=== PATIENT | female | born 1970 | race Caucasian/White ===

== ENCOUNTER 2023-11-06 08:56 | Inpatient (IN) | payer SELFPAY ==
[~2023-11-06] VITALS: Ht 157.5 cm; Wt 67.9 kg
[2023-11-06] VITALS (44 sets, daily range): BP systolic 121–174; BP diastolic 61–109; TEMP 98.3–98.5; O2SAT 95–98
[2023-11-06] MEDS ORDERED: ISOVUE-370 76% 100ML VIAL As Ordered ONE (09:42)
[2023-11-06 10:39] LABS: BASO # 0.1 10^3/uL (0.0-0.2); BASO % 0.8 % (0.0-1.0); EOS % 0.4 % (0.0-3.0); HEMATOCRIT 49.1 % (36.0-47.0); HEMOGLOBIN 16.7 g/dl (12.0-15.5); LYMPH # 1.7 10^3/uL (1.5-5.0); LYMPH % 14.5 % (24.0-44.0); MEAN CORPUSCULAR HEMOGLOBIN 30.9 pg (27.0-33.0); MEAN CORPUSCULAR VOLUME 90.8 fl (80.0-96.0); MONO # 0.4 10^3/uL (0.0-0.8); MONO % 3.7 % (2.0-8.0); NEUTROPHILS # 9.2 10^3/uL (1.5-8.5); NEUTROPHILS % 80.2 % (36.0-66.0); PLATELET COUNT, AUTOMATED 304 10^3/uL (150-450); RED BLOOD COUNT 5.41 10^6/uL (4.00-5.40); WHITE BLOOD COUNT 11.4 10^3/uL (4.0-10.0)
[2023-11-06 10:50] LABS: INR 1.03; PARTIAL THROMBOPLASTIN TIME 32.7 SECONDS (24.8-34.2); PROTHROMBIN TIME 13.2 SECONDS (12.5-14.5)
[2023-11-06] MEDS: LABETALOL 100MG/20ML VIAL IV PRN (10:56)
[2023-11-06 11:11] LABS: CK-MB VALUE MASS 1.9 NG/ML (<3.6)
[2023-11-06 11:12] LABS: MB/CK RELATIVE INDEX 1.9 (< OR =4)
[2023-11-06] MEDS ORDERED: HOME MED LIST COMPLETE! XX SCH (12:45)
[2023-11-06 13:00] LABS: ALBUMIN 4.3 G/DL (3.2-5.2); BILIRUBIN,DIRECT 0.1 MG/DL (<0.4); BILIRUBIN,TOTAL 0.4 MG/DL (0.3-1.2); CHOLESTEROL RISK RATIO 5.17 (<5); HDL CHOLESTEROL 49.1 MG/DL (>40); LDL CHOLESTEROL 171.1 MG/DL (<100); NON-HDL-C 204.9 MG/DL
[2023-11-06] MEDS: niCARdipine IV 40 MG in IV 1 EA IV SCH ×2 (13:01→22:00)
[2023-11-06] MEDS: PANTOPRAZOLE 40MG TAB (PROTONIX) PO SCH (13:51)
[2023-11-06] MEDS: ENOXAPARIN 40MG/0.4ML SYRINGE (J1650 PER 10MG) SC SCH (13:52)
[2023-11-06] MEDS: ASPIRIN 81MG CHEW TABLET PO SCH (13:52)
[2023-11-06] MEDS: CLOPIDOGREL 75 MG TAB PO SCH (13:52)
[2023-11-06] MEDS: ATORVASTATIN 20 MG TAB PO SCH (14:21)
[2023-11-06] MEDS: SODIUM CHLORIDE NASAL 0.65% SPRAY BTL (OCEAN) SCH (21:00)
[2023-11-07] VITALS (41 sets, daily range): BP systolic 90–208; BP diastolic 56–129; TEMP 97.6–98.9; O2SAT 94–98
[2023-11-07 05:41] LABS: ALBUMIN 4.2 G/DL (3.2-5.2); ALKALINE PHOSPHATASE 80 U/L (46-116); ALT/SGPT 13 U/L (7.0-40); AST/SGOT 15 U/L (<34); BILIRUBIN,TOTAL 0.6 MG/DL (0.3-1.2); BLOOD UREA NITROGEN 17 MG/DL (9-23); CALCIUM LEVEL 9.2 MG/DL (8.5-10.1); CARBON DIOXIDE LEVEL 27 MMOL/L (20-31); CHLORIDE LEVEL 108 MMOL/L (98-107); CREATININE FOR GFR 0.87 MG/DL (0.55-1.30); GLOMERULAR FILTRATION RATE > 60.0 (>51); GLUCOSE, FASTING 97 MG/DL (60-100); SODIUM LEVEL 145 MMOL/L (136-145); TOTAL PROTEIN 6.7 G/DL (5.7-8.2)
[2023-11-07] MEDS: POTASSIUM CHLORIDE 10% LIQ 20MEQ/15ML UDC PO ONE (06:24)
[2023-11-07] MEDS: hydrALAZINE 20MG/ML 1ML VIAL IV PRN (06:24)
[2023-11-07] MEDS: KCL 10MEQ/100ML SWI (KRUN) 10 MEQ in IV 1 EA IV SCH (06:24)
[2023-11-07] MEDS: CARVedilol 6.25 MG TAB PO SCH (08:15)
[2023-11-07] MEDS: hydrALAZINE 20MG/ML 1ML VIAL IV STA (08:34)
[2023-11-07] MEDS: POTASSIUM CHLORIDE 10MEQ SR TABLET PO ONE (13:17)
[2023-11-07] MEDS: cloNIDine 0.1MG TABLET PO SCH (13:47)
[2023-11-07] MEDS: ALPRAZolam 0.25 MG TAB PO ONE (13:48)
[2023-11-07] MEDS ORDERED: niCARdipine IV 40 MG in IV 1 EA IV SCH (14:00)
[2023-11-07] MEDS ORDERED: **hydrALAZINE** 50 MG TAB PO SCH (18:00)
[2023-11-07] MEDS ORDERED: CARVedilol 12.5 MG TAB PO SCH (21:00)
[2023-11-08] VITALS (12 sets, daily range): BP systolic 138–211; BP diastolic 69–118; TEMP 97–99.1; O2SAT 74–97
[2023-11-08 04:52] LABS: HEMATOCRIT 45.7 % (36.0-47.0); HEMOGLOBIN 15.3 g/dl (12.0-15.5); MEAN CORPUSCULAR HEMOGLOBIN 31.4 pg (27.0-33.0); MEAN CORPUSCULAR HGB CONC 33.5 g/dl (32.0-36.5); MEAN CORPUSCULAR VOLUME 93.8 fl (80.0-96.0); PLATELET COUNT, AUTOMATED 280 10^3/uL (150-450); RED BLOOD COUNT 4.87 10^6/uL (4.00-5.40); WHITE BLOOD COUNT 12.3 10^3/uL (4.0-10.0)
[2023-11-08 05:33] LABS: CALCIUM LEVEL 9.4 MG/DL (8.5-10.1); CREATININE FOR GFR 1.35 MG/DL (0.55-1.30); GLOMERULAR FILTRATION RATE 43.5 (>51)
[2023-11-08] MEDS: **hydrALAZINE** 10 MG TAB PO SCH (08:04)
[2023-11-08] MEDS: NS 1,000 ML IV ONE (08:15)
[2023-11-08] MEDS: HEPARIN SOD (PORCINE) 5000UNITS/ML 1ML VIAL/SYRINGE SC SCH (09:00)
[2023-11-08] MEDS: **hydrALAZINE** 50 MG TAB PO SCH (15:52)
[2023-11-08] MEDS ORDERED: ALPRAZolam 0.25 MG TAB PO PRN (18:25)
[2023-11-08] MEDS: ACETAMINOPHEN TAB 650MG DOSE (2X325MG) PO PRN (18:55)
[2023-11-08 19:51] LABS: BLOOD UREA NITROGEN 22 MG/DL (9-23); CALCIUM LEVEL 9.1 MG/DL (8.5-10.1); CARBON DIOXIDE LEVEL 24 MMOL/L (20-31); CHLORIDE LEVEL 113 MMOL/L (98-107); CREATININE FOR GFR 0.92 MG/DL (0.55-1.30); GLOMERULAR FILTRATION RATE > 60.0 (>51); GLUCOSE, FASTING 97 MG/DL (60-100); POTASSIUM SERUM 3.5 MMOL/L (3.5-5.1); SODIUM LEVEL 142 MMOL/L (136-145)
[2023-11-09] VITALS (11 sets, daily range): BP systolic 144–186; BP diastolic 62–86; TEMP 97.1–99.1; O2SAT 82–98
[2023-11-09 05:38] LABS: BASO # 0.1 10^3/uL (0.0-0.2); BASO % 1.1 % (0.0-1.0); EOS # 0.2 10^3/uL (0.0-0.5); HEMATOCRIT 45.6 % (36.0-47.0); HEMOGLOBIN 15.3 g/dl (12.0-15.5); LYMPH # 2.6 10^3/uL (1.5-5.0); LYMPH % 23.3 % (24.0-44.0); MEAN CORPUSCULAR HEMOGLOBIN 31.2 pg (27.0-33.0); MEAN CORPUSCULAR HGB CONC 33.6 g/dl (32.0-36.5); MEAN CORPUSCULAR VOLUME 92.9 fl (80.0-96.0); MONO # 0.7 10^3/uL (0.0-0.8); MONO % 6.1 % (2.0-8.0); NEUTROPHILS # 7.5 10^3/uL (1.5-8.5); PLATELET COUNT, AUTOMATED 268 10^3/uL (150-450); RED BLOOD COUNT 4.91 10^6/uL (4.00-5.40); WHITE BLOOD COUNT 11.2 10^3/uL (4.0-10.0)
[2023-11-09 06:01] LABS: BLOOD UREA NITROGEN 22 MG/DL (9-23); CALCIUM LEVEL 9.4 MG/DL (8.5-10.1); CARBON DIOXIDE LEVEL 24 MMOL/L (20-31); CHLORIDE LEVEL 112 MMOL/L (98-107); CREATININE FOR GFR 0.94 MG/DL (0.55-1.30); GLOMERULAR FILTRATION RATE > 60.0 (>51); GLUCOSE, FASTING 92 MG/DL (60-100); POTASSIUM SERUM 3.6 MMOL/L (3.5-5.1); SODIUM LEVEL 145 MMOL/L (136-145)
[2023-11-09] MEDS: **hydrALAZINE** 50 MG TAB PO SCH (20:19)
[2023-11-09] MEDS ORDERED: PILL CUTTER 1 EACH XX PRN (20:20)
[2023-11-10 00:33] VITALS: BP 168/74; TEMP 98.1; O2SAT 96
[2023-11-10 03:43] VITALS: BP 162/75; TEMP 97.7; O2SAT 97
[2023-11-10 04:00] VITALS: BP 162/75; TEMP 97.7; O2SAT 96
[2023-11-10 06:45] LABS: CALCIUM LEVEL 9.3 MG/DL (8.5-10.1); CREATININE FOR GFR 1.07 MG/DL (0.55-1.30); GLOMERULAR FILTRATION RATE 56.9 (>51); POTASSIUM SERUM 3.6 MMOL/L (3.5-5.1)
[2023-11-10 07:22] VITALS: BP 154/70; TEMP 97.4; O2SAT 95
[2023-11-10] MEDS ORDERED: CLOP75TA2 PO (08:30)
[2023-11-10] MEDS ORDERED: ALPR0.25 PO (08:30)
[2023-11-10] MEDS ORDERED: AMLO1TAB25 PO (08:30)
[2023-11-10] MEDS ORDERED: PANT40TA29 PO (08:30)
[2023-11-10] MEDS ORDERED: HYDR50TA46 PO (08:30)
[2023-11-10] MEDS ORDERED: ATOR1TAB21 PO (08:30)
[2023-11-10] MEDS ORDERED: ASPI81CH8 PO (08:30)
[2023-11-10 09:11] VITALS: BP 144/68
[2023-11-10 09:12] VITALS: BP 144/68
[2023-11-10] MEDS: **hydrALAZINE HCL** 25 MG TAB PO ONE (09:12)
[2023-11-10] MEDS ORDERED: **hydrALAZINE** 50 MG TAB PO SCH (16:00)
== END 2023-11-10 12:07 | disposition home or self-care (01) | DRG 45 ==
LOC: M ED 08:56 → M ED INP 12:20 → M ICU 13:14 → M PCU 11-08 15:35
PROVIDERS: ADMIT Internal Medicine Pulmonary Disease; ATTEND General Practice
PROC: B246ZZZ Ultrasonography of Right and Left Heart (ICD-10-PCS; principal; 2023-11-06)
DX: I63.531 Cerebral infarction due to unspecified occlusion or stenosis of right posterior cerebral artery (principal); N17.9 Acute kidney failure, unspecified; E87.0 Hyperosmolality and hypernatremia; I16.1 Hypertensive emergency; I10 Essential (primary) hypertension; F17.200 Nicotine dependence, unspecified, uncomplicated; I16.9 Hypertensive crisis, unspecified; F41.9 Anxiety disorder, unspecified; R47.81 Slurred speech; R29.810 Facial weakness; E87.6 Hypokalemia; E78.5 Hyperlipidemia, unspecified

== ENCOUNTER 2024-02-01 15:32 | Emergency (ER) | payer OTHER, SELFPAY ==
[~2024-02-01] VITALS: Ht 154.9 cm; Wt 63.4 kg
[2024-02-01 17:58] VITALS: BP 152/72; TEMP 97.7; O2SAT 98
[2024-02-01 19:21] LABS: BASO # 0.1 10^3/uL (0.0-0.2); BASO % 1.3 % (0.0-1.0); EOS # 0.2 10^3/uL (0.0-0.5); EOS % 1.8 % (0.0-3.0); HEMATOCRIT 39.7 % (36.0-47.0); HEMOGLOBIN 13.4 g/dl (12.0-15.5); LYMPH # 1.7 10^3/uL (1.5-5.0); LYMPH % 17.2 % (24.0-44.0); MEAN CORPUSCULAR HEMOGLOBIN 31.8 pg (27.0-33.0); MEAN CORPUSCULAR HGB CONC 33.8 g/dl (32.0-36.5); MEAN CORPUSCULAR VOLUME 94.1 fl (80.0-96.0); MONO # 0.6 10^3/uL (0.0-0.8); MONO % 5.7 % (2.0-8.0); NEUTROPHILS # 7.4 10^3/uL (1.5-8.5); NEUTROPHILS % 73.7 % (36.0-66.0); PLATELET COUNT, AUTOMATED 302 10^3/uL (150-450); RED BLOOD COUNT 4.22 10^6/uL (4.00-5.40); WHITE BLOOD COUNT 10.1 10^3/uL (4.0-10.0)
[2024-02-01 19:27] LABS: CALCIUM LEVEL 9.7 MG/DL (8.5-10.1); CREATININE FOR GFR 1.14 MG/DL (0.55-1.30); GLOMERULAR FILTRATION RATE 52.7 (>51)
[2024-02-01] MEDS ORDERED: POTASSIUM CHLORIDE 10MEQ SR TABLET PO ONE (20:10)
[2024-02-01] MEDS ORDERED: KCL 10MEQ/100ML SWI (KRUN) 10 MEQ in IV 1 EA IV ONE (20:10)
== END 2024-02-01 20:27 | disposition left against medical advice (07) ==
LOC: M ED 15:32
DX: E87.6 Hypokalemia (principal); I10 Essential (primary) hypertension; K21.9 Gastro-esophageal reflux disease without esophagitis; Z79.1 Long term (current) use of non-steroidal anti-inflammatories (NSAID); Z79.899 Other long term (current) drug therapy; Z53.9 Procedure and treatment not carried out, unspecified reason

== ENCOUNTER → 2024-02-01 | Outpatient (REF) | payer OTHER, SELFPAY ==
[~2024-02-01] MED LIST: ALPR0.25 PO; AMLO1TAB25 PO; ASPI81CH8 PO; ATOR1TAB21 PO; CLOP75TA2 PO; HYDR50TA46 PO; PANT40TA29 PO
[2024-02-01 13:56] LABS: FREE T4 1.18 NG/DL (0.89-1.76)
[2024-02-01 13:57] LABS: THYROID STIMULATING HORMONE 2.918 uIU/ML (0.55-4.78)
[2024-02-01 14:33] LABS: ALBUMIN 4.4 G/DL (3.2-5.2); ALKALINE PHOSPHATASE 86 U/L (46-116); ALT/SGPT 16 U/L (7.0-40); AST/SGOT 18 U/L (<34); BILIRUBIN,TOTAL 0.3 MG/DL (0.3-1.2); BLOOD UREA NITROGEN 14 MG/DL (9-23); CALCIUM LEVEL 9.9 MG/DL (8.5-10.1); CARBON DIOXIDE LEVEL 32 MMOL/L (20-31); CHLORIDE LEVEL 106 MMOL/L (98-107); CHOLESTEROL LEVEL 150 MG/DL (<200); CHOLESTEROL RISK RATIO 3.21 (<5); CREATININE FOR GFR 0.99 MG/DL (0.55-1.30); GLOMERULAR FILTRATION RATE > 60.0 (>51); GLUCOSE, FASTING 95 MG/DL (60-100); HDL CHOLESTEROL 46.7 MG/DL (>40); LDL CHOLESTEROL 77.3 MG/DL (<100); NON-HDL-C 103.3 MG/DL; POTASSIUM SERUM 2.9 MMOL/L (3.5-5.1); SODIUM LEVEL 144 MMOL/L (136-145); TOTAL PROTEIN 7.2 G/DL (5.7-8.2); TRIGLYCERIDES LEVEL 130 MG/DL (<150)
== END ==
LOC: M LAB REF 12:30
PROVIDERS: ATTEND Family Medicine Addiction Medicine
DX: I10 Essential (primary) hypertension (principal)

== ENCOUNTER → 2024-03-25 | Outpatient (REF) | payer OTHER ==
[2024-03-25 12:34] LABS: ALBUMIN 4.2 G/DL (3.2-5.2); ALKALINE PHOSPHATASE 80 U/L (35-104); ALT/SGPT 11 U/L (7.0-40); AST/SGOT 15 U/L (<34); BILIRUBIN,TOTAL 0.2 MG/DL (0.3-1.2); BLOOD UREA NITROGEN 8 MG/DL (9-23); CALCIUM LEVEL 9.6 MG/DL (8.5-10.1); CARBON DIOXIDE LEVEL 30 MMOL/L (20-31); CHLORIDE LEVEL 108 MMOL/L (98-107); CREATININE FOR GFR 0.87 MG/DL (0.55-1.30); GLOMERULAR FILTRATION RATE > 60.0 (>51); GLUCOSE, FASTING 101 MG/DL (60-100); MAGNESIUM LEVEL 2.1 MG/DL (1.8-2.4); POTASSIUM SERUM 3.2 MMOL/L (3.5-5.1); SODIUM LEVEL 144 MMOL/L (136-145); TOTAL PROTEIN 7.3 G/DL (5.7-8.2)
== END ==
LOC: M LAB REF 11:35
PROVIDERS: ATTEND Family Medicine Addiction Medicine
DX: I10 Essential (primary) hypertension (principal)

== ENCOUNTER → 2025-04-17 | Outpatient (REF) | payer OTHER ==
[2025-04-17 13:11] LABS: ALT/SGPT 12 U/L (7.0-40); AST/SGOT 18 U/L (<34); CALCIUM LEVEL 9.2 MG/DL (8.5-10.1); CARBON DIOXIDE LEVEL 25 MMOL/L (20-31); CHLORIDE LEVEL 113 MMOL/L (98-107); CHOLESTEROL LEVEL 159 MG/DL (<200); CHOLESTEROL RISK RATIO 3.43 (<5); CREATININE FOR GFR 1.16 MG/DL (0.55-1.30); GLOMERULAR FILTRATION RATE 55.3 (>51); LDL CHOLESTEROL 90.3 MG/DL (<100); MAGNESIUM LEVEL 2.2 MG/DL (1.8-2.4); NON-HDL-C 112.7 MG/DL; POTASSIUM SERUM 4.2 MMOL/L (3.5-5.1); SODIUM LEVEL 146 MMOL/L (136-145); TRIGLYCERIDES LEVEL 112 MG/DL (<150)
[2025-04-17 13:12] LABS: PLATELET COUNT, AUTOMATED 341 10^3/uL (150-450)
== END ==
LOC: M LAB REF 12:19
PROVIDERS: ATTEND Family Medicine Addiction Medicine
DX: E87.6 Hypokalemia (principal); E78.5 Hyperlipidemia, unspecified